=== PATIENT | male | born 1985 | race Caucasian/White ===

== ENCOUNTER 2016-10-18 16:20 | Emergency (ER) | payer OTHER ==
[~2016-10-18] VITALS: Ht 182.9 cm; Wt 125.0 kg
[2016-10-18 16:29] VITALS: BP 157/105; PULSE 124; TEMP 36.7; O2SAT 99; Ht 182.9 cm; Wt 125.0 kg
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
[2017-03-30] MEDS ORDERED: MIRT15TA3 PO (15:05)
[2017-03-30] MEDS ORDERED: QUET1TAB10 PO (15:05)
== END 2016-10-18 16:55 | disposition home or self-care (01) ==
LOC: C.EDB 16:21 → C.EDA 16:55
DX: T21.21XA Burn of second degree of chest wall, initial encounter (principal); T22.00XA Burn of unspecified degree of shoulder and upper limb, except wrist and hand, unspecified site, initial encounter; T31.10 Burns involving 10-19% of body surface with 0% to 9% third degree burns; X18.XXXA Contact with other hot metals, initial encounter; F10.10 Alcohol abuse, uncomplicated; F41.9 Anxiety disorder, unspecified; F32.9 Major depressive disorder, single episode, unspecified; Z72.820 Sleep deprivation; F17.210 Nicotine dependence, cigarettes, uncomplicated

== ENCOUNTER 2017-01-24 13:03 | Emergency (ER) | payer OTHER ==
[~2017-01-24] VITALS: Ht 182.9 cm; Wt 121.4 kg
[2017-01-24 13:17] VITALS: TEMP 36.8; Ht 182.9 cm; Wt 121.4 kg
--- NOTE | 2017-01-24 13:51 | DIAGNOSTIC IMAGING REPORT ---
LEFT ANKLE 3 VIEWS CLINICAL HISTORY: Left ankle pain. FINDINGS: 3 views of the left ankle are compared to study dated 09/28/2009. The skeletal structures are well mineralized. No fracture is seen. The ankle mortise is intact. Degenerative spurring is seen from the anterior tibial plafond. There is a joint effusion, and soft tissue swelling is present around the ankle. IMPRESSION: Soft tissue swelling and joint effusion with no radiographic evidence of left ankle fracture. Electronically signed by: Brenton Polk M.D. 01/24/2017 1:50 PM Dictated Date/Time: 01/24/2017 1:43 PM
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
[2017-01-24] MEDS ORDERED: ZLF/50 PO (15:05)
[2017-01-24] MEDS ORDERED: QUET1TAB10 PO (15:05)
[2017-01-24] MEDS ORDERED: MIRT15TA3 PO (15:05)
[2017-01-24 15:07] VITALS: BP 141/99; PULSE 84; O2SAT 96
== END 2017-01-24 15:08 | disposition home or self-care (01) ==
LOC: C.EDB 13:04 → C.EDD 15:08
DX: S93.402A Sprain of unspecified ligament of left ankle, initial encounter (principal); X58.XXXA Exposure to other specified factors, initial encounter; F32.9 Major depressive disorder, single episode, unspecified; F41.9 Anxiety disorder, unspecified; Z79.899 Other long term (current) drug therapy

== ENCOUNTER 2017-03-30 21:29 | Emergency (ER) | payer OTHER ==
[~2017-03-30] VITALS: Ht 182.9 cm; Wt 122.4 kg
[~2017-03-30 21:29] MED LIST: MIRT15TA3 PO; QUET1TAB10 PO; ZLF/50 PO
[2017-03-30 21:32] VITALS: BP 152/105; PULSE 94; TEMP 36.8; O2SAT 97; Ht 182.9 cm; Wt 122.4 kg
--- NOTE | 2017-03-30 22:14 | DIAGNOSTIC IMAGING REPORT ---
L ANKLE MIN 3 VIEWS ROUTINE HISTORY: 31 years-old Male L ankle pain acute left ankle pain status post trauma COMPARISON: Left ankle radiographs 01/24/2017 TECHNIQUE: 3 views of the left ankle FINDINGS: Moderate soft tissue swelling about the ankle is seen circumferentially. There is a new 4 mm linear bone fragment adjacent to the medial malleolus. No osteochondral defect. Distal tibia and fibula otherwise appear intact. Minimal anterior spurring of the tibial plafond. There is minimal spurring of the plantar calcaneus. Small joint effusion. Negative for opaque foreign body. Stranding is seen within the Kagers fat-pad. IMPRESSION: 4 mm linear bone fragment adjacent to the medial malleolus suggest acute avulsion fracture with moderate soft tissue swelling and small joint effusion. The above report was generated using voice recognition software. It may contain grammatical, syntax or spelling errors. Electronically signed by: Ramon Patton M.D. 03/30/2017 10:13 PM Dictated Date/Time: 03/30/2017 10:10 PM
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
[2017-03-30] MEDS ORDERED: NAPR1TAB9 PO (22:29)
[2017-03-30] MEDS ORDERED: SERT25TA PO (22:29)
== END 2017-03-30 23:03 | disposition home or self-care (01) ==
LOC: C.EDB 21:30 → C.EDD 23:03
DX: S82.892A Other fracture of left lower leg, initial encounter for closed fracture (principal); X50.9XXA Other and unspecified overexertion or strenuous movements or postures, initial encounter

== ENCOUNTER 2017-07-04 16:17 | Emergency (ER) | payer OTHER ==
[~2017-07-04] VITALS: Ht 182.9 cm; Wt 106.3 kg
[~2017-07-04 16:17] MED LIST changes: +NAPR1TAB9 PO; +SERT25TA PO; -ZLF/50 PO
[2017-07-04 16:57] VITALS: TEMP 37; Ht 182.9 cm; Wt 106.3 kg
--- NOTE | 2017-07-04 17:33 | DIAGNOSTIC IMAGING REPORT ---
SOFT TISSUE NECK CLINICAL HISTORY: throat pain; feels like my voice box is moving COMPARISON STUDY: No previous studies for comparison. FINDINGS: The retropharyngeal soft tissues appear normal. No colonic abnormalities are visualized on conventional radiographic imaging. IMPRESSION: Unremarkable conventional radiographic evaluation of the soft tissue neck. Electronically signed by: Olvin Sheikh M.D. 07/04/2017 5:32 PM Dictated Date/Time: 07/04/2017 5:31 PM
[2017-07-04 18:10] VITALS: BP 138/89; PULSE 91; O2SAT 99
--- NOTE | 2017-07-05 23:19 | EMERGENCY ROOM VISIT NOTE ---
ED Visit Note First contact with patient: 17:05 Chief Complaint: Throat pain. History of Present Illness: is a 32-year-old white male who ambulates into the ED accompanied by female friend complaining of anterior throat pain. Patient reports last evening he was eating pizza. He reports wall eating he felt like his larynx acutely shifted to the right. He then continued to eat and the larynx shifted back into its normal place. He denies during these events any episodes of choking or inability to swallow the food or his secretions. He reports when he awoke this morning he noticed a sore sensation over the anterior throat. This pain is located in the anterior groove between the sternocleidomastoid muscle and the larynx. He describes this discomfort as a soreness sensation. He rates his discomfort 7/10. His pain is slightly worse with swallowing. He has not identified any alleviating factors related to the pain. He has not taken any medications for pain prior to arrival at the hospital. He denies fevers, chills, sweats, skin eruptions, skin color changes, difficulty swallowing, voice changes, drooling, painful talking, upper respiratory tract symptoms, coughing, shortness of breath, nausea/vomiting. Review of Systems: As noted above in history of present illness. 8 body systems were reviewed and found to be negative as noted above. Past Medical History: Unspecified knee surgery.. Current Medications: Aleve, Zoloft, Seroquel, Remeron. Allergies to Medications: A shunt denies. Social History: Patient is employed; he feels safe in his home environment; he admits to tobacco and alcohol use. Physical Examination: Vital Signs: Date Time Temp Pulse Resp B/P (MAP) Pulse Ox O2 Delivery O2 Flow Rate FiO2 07/04/17 18:10 91 18 138/89 99 07/04/17 17:02 98 Room Air 07/04/17 16:57 37.0 103 18 147/92 98 Room Air GENERAL: 32-year-old female in mild distress due to pain, nontoxic-appearing, afebrile and hemodynamically stable. NEUROLOGICAL: Awake, alert and oriented to person, place and time. Answering questions appropriately and following commands. Normal gait. Good hand eye coordination. SKIN: Warm, dry and pink. No soft tissue eruptions or trauma noted. HEENT: Atraumatic and normocephalic. No malocclusion. No intraoral trauma. Uvula is midline and no abscesses are seen. No tonsillar hypertrophy or exudates. Speech is normal and clear. Mild anterior tenderness over the larynx without swelling or erythema. No auditory or auscultatory stridor. No local lymphadenopathy. Trachea is midline. No jugular venous distention. THORAX: Lungs sounds are clear to auscultation and equal bilaterally with symmetrical chest wall. No wheezing, rales or rhonchi. ED Course: Patient is assessed as noted above. Patient's medication list was reviewed. Soft Tissue Neck X-Rays: Were reviewed by myself and read by the radiologist and shows unremarkable anginal evaluation of the soft tissue neck. Patient was offered pain medication and refused. Patient's case was reviewed with Dr. Patel; we agreed on diagnostic approach, treatment, disposition and plan. Patient was educated about today's findings and instructed on his treatment plan ; he verbalized understanding and agreement with this plan. Clinical Impression: Anterior throat pain. Decision-Making: Initially my differential diagnosis I considered pharyngitis from multiple causes, laryngitis, epiglottitis, soft tissue mass, throat abscess and other causes. Disposition: Patient discharged home in stable condition accompanied by his girlfriend; prior to departure he was reassessed and subjectively reported he was feeling better and rated his discomfort 4/10. Plan: Patient was encouraged to alternate ibuprofen and acetaminophen every 6 hours as needed for persistent pain. Patient is encouraged to use a liquid or mechanical soft eye until resolution of throat discomfort. Patient was encouraged to avoid alcohol and tobacco use. Patient is encouraged to follow-up with Dr. Canelo Benton ENT specialist for persistent pain. Patient was encouraged return ED for worsening pain, fevers, inability to swallow, painful talking, drooling, difficulty breathing or any new/concerning symptoms.
== END 2017-07-04 18:05 | disposition home or self-care (01) ==
LOC: C.EDB 16:20 → C.EDD 18:05
DX: R07.0 Pain in throat (principal); Z79.899 Other long term (current) drug therapy; Z72.0 Tobacco use

== ENCOUNTER 2017-07-26 10:02 | Emergency (ER) | payer OTHER ==
[~2017-07-26] VITALS: Ht 182.9 cm; Wt 119.0 kg
[2017-07-26 10:10] VITALS: TEMP 36.7; Ht 182.9 cm; Wt 119.0 kg
[2017-07-26 11:04] LABS: BASO % 0.4 %; BASO ABS # 0.03 K/uL (0-0.2); EOS % 2.4 %; EOS ABS # 0.19 K/uL (0-0.5); HEMATOCRIT 46.2 % (42-52); HEMOGLOBIN 16.7 g/dL (14.0-18.0); IG# 0.04 K/uL (0.00-0.02); LYMPH % 28.3 %; LYMPH ABS # 2.24 K/uL (1.2-3.4); MEAN CORPUSCULAR HEMOGLOBIN 32.2 pg (25-34); MEAN CORPUSCULAR HGB CONC 36.1 g/dl (32-36); MEAN PLATELET VOLUME 9.2 fL (7.4-10.4); MONO % 6.4 %; MONO ABS # 0.51 K/uL (0.11-0.59); PLATELET COUNT 168 K/uL (130-400); RED CELL DISTRIBUTION WIDTH CV 12.6 % (11.5-14.5); RED CELL DISTRIBUTION WIDTH SD 40.9 fL (36.4-46.3); WHITE BLOOD COUNT 7.91 K/uL (4.8-10.8)
[2017-07-26] MEDS ORDERED: ALBUT/IPRATROP 3MG/0.5MG NEB 3 ML VIAL INH STA (11:09)
[2017-07-26 11:15] LABS: PTT PATIENT 29.6 SECONDS (21.0-31.0)
[2017-07-26 11:19] LABS: ALBUMIN 3.6 gm/dl (3.4-5.0); CALCIUM 8.6 mg/dl (8.5-10.1); CREATININE 0.71 mg/dl (0.60-1.40); POTASSIUM 4.2 mmol/L (3.5-5.1)
[2017-07-26 11:22] LABS: TOTAL PROTEIN 7.1 gm/dl (6.4-8.2)
--- NOTE | 2017-07-26 11:35 | DIAGNOSTIC IMAGING REPORT ---
CHEST 2 VIEWS ROUTINE HISTORY: EVALUATE RESPIRATORY DISTRESS.DYSPNEA COMPARISON: None. FINDINGS: The lungs are clear. Cardiac silhouette is normal in size. No pleural effusions. No pneumothorax. IMPRESSION: No acute process. Electronically signed by: Khris Davenport M.D. 07/26/2017 11:34 AM Dictated Date/Time: 07/26/2017 11:32 AM
[2017-07-26] MEDS ORDERED: QUET1TAB32 PO (11:47)
[2017-07-26] MEDS ORDERED: PRC4 PO (11:47)
[2017-07-26 12:13] LABS: INFLUENZA B ANTIGEN Neg for Influ B (NEG)
[2017-07-26] MEDS ORDERED: VNTHFA/IN INH (12:41)
[2017-07-26] MEDS ORDERED: BENZ100C18 PO (12:41)
[2017-07-26] MEDS ORDERED: PRED20TA2 PO (12:41)
[2017-07-26 12:51] VITALS: BP 108/96; PULSE 89; O2SAT 98
--- NOTE | 2017-07-26 17:47 | EMERGENCY ROOM VISIT NOTE ---
ED Visit Note First contact with patient: 10:36 Chief Complaint: Coughing up blood. History of Present Illness: Mr. Briones is a 32-year-old white male who ambulates into the ED complaining of a progressive cough for the last 2 days and hemoptysis this morning. Historically patient reports she has no significant pulmonary disease. He reports that 2 days ago he started developing a nonproductive cough. Initially it was mild and nonproductive but then over the last 24-36 hours it has been productive of a clearish sputum and then over the last 12 hours he reports he has been seeing some bright red blood in his sputum. Associated with the cough he reports he is having a burning discomfort in his chest. He rates his discomfort 8/10. The pain is only with cough and usually resolves within 5 minutes of the coughing stopping. He has been using DayQuil and NyQuil for his cough without relief of it. He does report the cough worsens when he is lying flat. He has not noted any alleviating factors related to his discomfort. Associated with symptoms he reports yesterday he had a temperature of 102F. Additionally he reports he has noted some intermittent body aches and reports she has been having multiple exposure to friends and coworkers with history of influenza. He denies skin eruptions, skin color changes, headache, dizziness, lightheadedness, sore throat, neck pain/stiffness, palpitations, claudication, cramping, previous clots, recent surgery/inactivity/extended travel, abdominal pain, nausea, vomiting, back/flank pain. Review of Systems: As noted above in history of present illness. All body systems were reviewed and found to be negative as noted above. Past Medical History: Unspecified knee surgery 2011. Current Medications: Medications Dose Route/Sig Max Daily Dose Days Date Category Dose Instructions Cyproheptadine HCl 4 Mg Tab 2 Mg PO HS 07/26/17 Reported Seroquel (Quetiapine Fumarate) 50 Mg Tab 50 Mg PO BID 07/26/17 Reported Zoloft (Sertraline HCl) 25 Mg Tab 50 Mg PO DAILY 03/30/17 Reported Aleve (Naproxen) 220 Mg Tab 660 Mg PO PRN 03/30/17 Reported Seroquel (Quetiapine Fumarate) 200 Mg Tab 200 Mg PO HS 01/24/17 Reported Remeron (Mirtazapine) 15 Mg Tab 15 Mg PO HS 01/24/17 Reported Allergies to Medications: Patient denies. Social History: Patient is currently employed; he feels safe in his home environment; he admits smoking 2 packs of cigarettes per day and denies alcohol use. Physical Examination: Vital Signs: Date Time Temp Pulse Resp B/P (MAP) Pulse Ox O2 Delivery O2 Flow Rate FiO2 07/26/17 12:51 89 22 108/96 98 07/26/17 12:10 90 18 144/105 94 Room Air 07/26/17 10:53 89 07/26/17 10:45 Room Air 07/26/17 10:44 83 16 153/101 97 Room Air 07/26/17 10:10 36.7 92 18 148/104 98 Room Air GENERAL: 32-year-old male in mild distress due to symptoms, nontoxic-appearing, afebrile and hemodynamically stable. NEUROLOGICAL: Awake, alert and oriented to person, place and time. Answering questions appropriately and following commands. Normal gait. Good hand eye coordination. No focal motor sensory deficits. SKIN: Warm, dry and pink. No soft tissue eruptions or trauma noted. HEENT: Atraumatic and normocephalic. PERRLA. Sclera white and conjunctiva pink. No drainage from naris. Oral cavity moist and pink. Pharynx is nonerythematous or edematous. Speech normal. No lymphadenopathy. Trachea midline. No jugular venous distention. No carotid bruits. BACK: No tenderness over the bony spine. No CVA tenderness. THORAX: Lungs sounds show some fine rales bibasilarly and diffuse wheezing with decreased air movement bilaterally. Equal bilaterally with symmetrical chest wall. No crepitus, tenderness, subcutaneous air or deformities noted. HEART: Regular rate and rhythm. No gallops, rubs or murmurs are appreciated. PMI is not displaced. No lifts, heaves or thrills. ABDOMEN: Flat, soft and nontender. Positive bowel sounds in all quadrants. No guarding, rigidity or organomegaly. EXTREMITIES: Moves all extremities well on command and with purpose. All distal neurovascular statuses are intact and equal bilaterally. No calf tenderness or cords. ED Course: Patient is assessed as noted above. Laboratory Testing: Test 07/26/17 10:35 07/26/17 10:40 07/26/17 11:15 Range/Units Influenza Type A Antigen Neg for Influ A NEG Influenza Type B Antigen Neg for Influ B NEG White Blood Count 7.91 4.8-10.8 K/uL Red Blood Count 5.19 4.7-6.1 M/uL Hemoglobin 16.7 14.0-18.0 g/dL Hematocrit 46.2 42-52 % Mean Corpuscular Volume 89.0 80-100 fL Mean Corpuscular Hemoglobin 32.2 25-34 pg Mean Corpuscular Hemoglobin Concent 36.1 32-36 g/dl Platelet Count 168 130-400 K/uL Mean Platelet Volume 9.2 7.4-10.4 fL Neutrophils (%) (Auto) 62.0 % Lymphocytes (%) (Auto) 28.3 % Monocytes (%) (Auto) 6.4 % Eosinophils (%) (Auto) 2.4 % Basophils (%) (Auto) 0.4 % Neutrophils # (Auto) 4.90 1.4-6.5 K/uL Lymphocytes # (Auto) 2.24 1.2-3.4 K/uL Monocytes # (Auto) 0.51 0.11-0.59 K/uL Eosinophils # (Auto) 0.19 0-0.5 K/uL Basophils # (Auto) 0.03 0-0.2 K/uL RDW Standard Deviation 40.9 36.4-46.3 fL RDW Coefficient of Variation 12.6 11.5-14.5 % Immature Granulocyte % (Auto) 0.5 % Immature Granulocyte # (Auto) 0.04 0.00-0.02 K/uL Prothrombin Time 10.3 9.0-12.0 SECONDS Prothromb Time International Ratio 1.0 0.9-1.1 Activated Partial Thromboplast Time 29.6 21.0-31.0 SECONDS Partial Thromboplastin Ratio 1.1 Sodium Level 140 136-145 mmol/L Potassium Level 4.2 3.5-5.1 mmol/L Chloride Level 108 98-107 mmol/L Carbon Dioxide Level 27 21-32 mmol/L Anion Gap 5.0 3-11 mmol/L Blood Urea Nitrogen 11 7-18 mg/dl Creatinine 0.71 0.60-1.40 mg/dl Est Creatinine Clear Calc Drug Dose 198.9 ml/min Estimated GFR () 143.9 Estimated GFR (Non- 124.1 BUN/Creatinine Ratio 15.9 10-20 Random Glucose 104 70-99 mg/dl Calcium Level 8.6 8.5-10.1 mg/dl Total Bilirubin 0.5 0.2-1 mg/dl Aspartate Amino Transf (AST/SGOT) 29 15-37 U/L Alanine Aminotransferase (ALT/SGPT) 37 12-78 U/L Alkaline Phosphatase 104 45-117 U/L Troponin I < 0.015 0-0.045 ng/ml Total Protein 7.1 6.4-8.2 gm/dl Albumin 3.6 3.4-5.0 gm/dl Globulin 3.5 2.5-4.0 gm/dl Albumin/Globulin Ratio 1.0 0.9-2 Urine Color YELLOW Urine Appearance CLEAR CLEAR Urine pH 5.5 4.5-7.5 Urine Specific [place] 1.021 1.000-1.030 Urine Protein NEG NEG Urine Glucose (UA) NEG NEG Urine Ketones NEG NEG Urine Occult Blood NEG NEG Urine Nitrite NEG NEG Urine Bilirubin NEG NEG Urine Urobilinogen NEG NEG Urine Leukocyte Esterase NEG NEG EKG: Was read by myself and reviewed with Dr. Underwood; shows normal sinus rhythm with a ventricular rate of 93 bpm. Normal axis, intervals and complexes. No acute ST changes indicating ischemia, injury or infarction. Medical records were reviewed and no EKGs were found for comparison. Chest X-Rays: Read by myself and the radiologist and showing no acute infiltrates, effusions or pneumothorax. Normal heart silhouette and bony anatomy. Medical records were reviewed and no films were found for comparison. An IV lock was initiated. Patient received an albuterol/Atrovent nebulizer breathing treatment. On reevaluation of his lungs after his breathing treatment he has resolution of wheezing and fine rales and has improved air movement in all thompson. Patient was reassessed multiple times during her stay in the emergency department. Patient's case was reviewed with Dr. Underwood; we agreed on diagnostic approach, treatment, disposition and plan. Patient was educated about today's findings and instructed on his treatment plan ; he verbalized understanding and agreement with this plan. Clinical Impression: Acute bronchitis. Hemoptysis. Decision-Making: Initially my differential diagnosis I considered pneumonia, bronchitis, pulmonary edema, pulmonary embolism, acute coronary syndrome and other causes. Disposition: Patient discharged home in stable condition; prior to departure he was reassessed and subjectively reported he was pain and symptom-free. Plan: Patient was encouraged alternate ibuprofen or acetaminophen every 3 hours as needed for pain and/or fevers. Patient was prescribed Tessalon Perles 100 mg every 8 hours as needed for cough. Patient was prescribed 60 mg of prednisone once a day for the next 5 days. Patient was prescribed an albuterol inhaler with a spacer and instructed to use 2 puffs every 6 hours for 5 days or as needed for severe coughing episodes, wheezing or shortness of breath. Patient was encouraged to stop smoking. Patient is encouraged to follow-up with his PCP for recheck in 2-3 days if no better. Patient is encouraged to return to the ED for worsening/uncontrolled pain, uncontrolled fevers, coughing up worsening blood, uncontrolled shortness of breath or any new/concerning symptoms.
== END 2017-07-26 12:53 | disposition home or self-care (01) ==
LOC: C.EDB 10:03 → C.EDC 12:53
DX: J20.9 Acute bronchitis, unspecified (principal); R04.2 Hemoptysis

== ENCOUNTER 2017-09-15 20:16 | Emergency (ER) | payer OTHER ==
[~2017-09-15] VITALS: Ht 182.9 cm; Wt 119.5 kg
[~2017-09-15 20:16] MED LIST changes: +PRC4 PO; +QUET1TAB32 PO
[2017-09-15 20:20] VITALS: TEMP 36.6; Ht 182.9 cm; Wt 119.5 kg
[2017-09-15] MEDS ORDERED: SODIUM CHLORIDE 0.9% 1000ML 2,000 ML IV STA (20:48)
[2017-09-15] MEDS ORDERED: GI COCKTAIL PO STA (20:48)
[2017-09-15 20:50] VITALS: O2SAT 95
--- NOTE | 2017-09-15 20:50 | EMERGENCY ROOM VISIT NOTE ---
History Report prepared by Vernon: Adán Ortiz Under the Supervision of: Dr. Juan Carlos Rodriguez M.D. First contact with patient: 20:34 Chief Complaint: CHEST PAIN Stated Complaint: CHEST PAIN, SOB, ELEVATED BP History of Present Illness The patient is a 32 year old male who presents to the Emergency Room with complaints of constant chest tightness and pressure beginning this morning. He notes he woke up this morning and noted his discomfort. The patient states he has a history of this before, but it has never been this severe. He reports he is also experiencing shortness of breath. The patient notes it felt as if he was having a panic attack. He states he was measuring his pulse and found it was around 115 bpm. The patient reports he has not had an elevated pulse with it before. He notes he ate a cheesesteak a few hours before sleeping. The patient states he typically drinks 10 alcohol drinks a day, and he does not know if withdrawal is contributing to it. He reports the last time he went a few days without drinking, he experienced irritability, but no physical symptoms. The patient notes he has a history of PTSD, GERD, and anxiety. The patient states he has a history of smoking a pack or more a day. He denies cough , congestion, fevers, nausea, vomiting, diarrhea, recent travel, and long trips. The patient notes he is adopted and does not know his biological family history. Source of History: patient Onset: this morning Position: chest Quality: pressure, other (tightness) Timing: constant Associated Symptoms: + SOB, No fevers, No cough, No nausea, No vomiting, No diarrhea Note: Associated symptoms: increased pulse Denies: recent travel and long trips, congestion Review of Systems See HPI for pertinent positives and negatives. A total of ten systems were reviewed and were otherwise negative. Past Medical & Surgical Medical Problems: (1) Alcohol abuse (2) Anxiety (3) Depression (4) Sleep deprivation Family History Unobtainable family history due to adoption Social History Smoking Status: Current Every Day Smoker Alcohol Use: heavy Drug Use: marijuana Marital Status: single Housing Status: lives with family Occupation Status: employed Current/Historical Medications Scheduled Cyproheptadine HCl (Cyproheptadine HCl), 4 MG PO HS Famotidine (Pepcid), 20 MG PO BID Mirtazapine (Remeron), 15 MG PO HS Quetiapine Fumarate (Seroquel), 50 MG PO AMHS Sertraline (Zoloft), 50 MG PO DAILY Allergies Coded Allergies: No Known Allergies (Unverified , 07/26/17) Physical Exam Vital Signs Date Time Temp Pulse Resp B/P (MAP) Pulse Ox O2 Delivery O2 Flow Rate FiO2 09/15/17 23:12 71 18 122/91 97 09/15/17 22:08 72 18 136/91 98 Room Air 09/15/17 20:50 95 Room Air 09/15/17 20:50 95 Room Air 09/15/17 20:47 92 09/15/17 20:20 36.6 94 20 164/117 97 Room Air Physical Exam GENERAL: Awake, alert, anxious-appearing, in no distress HENT: Normocephalic, atraumatic. Oropharynx has dry mucous membranes, otherwise unremarkable. EYES: Normal conjunctiva. Sclera non-icteric. NECK: Supple. No nuchal rigidity. FROM. No JVD. RESPIRATORY: Clear to auscultation. CARDIAC: Regular rate, normal rhythm. Extremities warm and well perfused. Pulses equal. ABDOMEN: Soft, non-distended. Mild epigastric discomfort with no discrete tenderness to palpation. No rebound or guarding. No masses. RECTAL: Deferred. MUSCULOSKELETAL: Chest examination reveals no tenderness. The back is symmetrical on inspection without obvious abnormality. There is no CVA tenderness to palpation. No joint edema. LOWER EXTREMITIES: Calves are equal size bilaterally and non-tender. No edema. No discoloration. NEURO: Normal sensorium. No sensory or motor deficits noted. SKIN: No rash or jaundice noted. Medical Decision & Procedures ER Provider Diagnostic Interpretation: X-ray: Per my interpretation, radiologist review. CHEST ONE VIEW PORTABLE HISTORY: Atypical CHEST PAIN COMPARISON: Chest 07/26/2017. FINDINGS: The lungs are clear. Cardiac silhouette is normal in size. No pleural effusions. No pneumothorax. Mild elevation the right hemidiaphragm, unchanged. IMPRESSION: Stable mild elevation of the right hemidiaphragm. Otherwise, no acute process within the chest. Electronically signed by: Khris Davenport M.D. 09/15/2017 9:14 PM Dictated Date/Time: 09/15/2017 9:12 PM Laboratory Results 09/15/17 20:50 Red Blood Count 5.19, Mean Corpuscular Volume 89.6, Mean Corpuscular Hemoglobin 32.6, Mean Corpuscular Hemoglobin Concent 36.3, Mean Platelet Volume 8.9, Neutrophils (%) (Auto) 66.1, Lymphocytes (%) (Auto) 22.7, Monocytes (%) (Auto) 8.7, Eosinophils (%) (Auto) 1.6, Basophils (%) (Auto) 0.2, Neutrophils # (Auto) 8.70, Lymphocytes # (Auto) 2.99, Monocytes # (Auto) 1.14, Eosinophils # (Auto) 0.21, Basophils # (Auto) 0.03 09/15/17 20:50 Test 09/15/17 20:50 White Blood Count 13.16 K/uL (4.8-10.8) Red Blood Count 5.19 M/uL (4.7-6.1) Hemoglobin 16.9 g/dL (14.0-18.0) Hematocrit 46.5 % (42-52) Mean Corpuscular Volume 89.6 fL (80-100) Mean Corpuscular Hemoglobin 32.6 pg (25-34) Mean Corpuscular Hemoglobin Concent 36.3 g/dl (32-36) Platelet Count 219 K/uL (130-400) Mean Platelet Volume 8.9 fL (7.4-10.4) Neutrophils (%) (Auto) 66.1 % Lymphocytes (%) (Auto) 22.7 % Monocytes (%) (Auto) 8.7 % Eosinophils (%) (Auto) 1.6 % Basophils (%) (Auto) 0.2 % Neutrophils # (Auto) 8.70 K/uL (1.4-6.5) Lymphocytes # (Auto) 2.99 K/uL (1.2-3.4) Monocytes # (Auto) 1.14 K/uL (0.11-0.59) Eosinophils # (Auto) 0.21 K/uL (0-0.5) Basophils # (Auto) 0.03 K/uL (0-0.2) RDW Standard Deviation 44.8 fL (36.4-46.3) RDW Coefficient of Variation 13.7 % (11.5-14.5) Immature Granulocyte % (Auto) 0.7 % Immature Granulocyte # (Auto) 0.09 K/uL (0.00-0.02) Anion Gap 8.0 mmol/L (3-11) Est Creatinine Clear Calc Drug Dose 168.5 ml/min Estimated GFR () 134.3 Estimated GFR (Non- 115.9 BUN/Creatinine Ratio 11.4 (10-20) Calcium Level 8.9 mg/dl (8.5-10.1) Magnesium Level 1.8 mg/dl (1.8-2.4) Total Bilirubin 1.0 mg/dl (0.2-1) Direct Bilirubin 0.2 mg/dl (0-0.2) Aspartate Amino Transf (AST/SGOT) 47 U/L (15-37) Alanine Aminotransferase (ALT/SGPT) 53 U/L (12-78) Alkaline Phosphatase 101 U/L (45-117) Troponin I < 0.015 ng/ml (0-0.045) Total Protein 7.4 gm/dl (6.4-8.2) Albumin 4.0 gm/dl (3.4-5.0) Lipase 141 U/L (73-393) Thyroid Stimulating Hormone (TSH) 2.300 uIu/ml (0.300-4.500) Laboratory results reviewed by me Medications Administered Medications (Trade) Dose Ordered Sig/Lizbet Route Start Time Stop Time Status Last Admin Dose Admin Sodium Chloride 2,000 ml @ 999 mls/hr Q2H1M STAT IV 09/15/17 20:48 09/15/17 22:48 DC 09/15/17 21:03 999 MLS/HR Famotidine (Pepcid Tab) 20 mg NOW ONCE PO 09/15/17 21:00 09/15/17 21:01 DC 09/15/17 21:03 20 MG Al Hydroxide/Mg Hydroxide (Maalox Susp) 30 ml STK-MED ONCE .ROUTE 09/15/17 20:58 09/15/17 20:59 DC 09/15/17 21:04 30 ML Lidocaine HCl (Viscous Lidocaine 2% Soln) 20 ml STK-MED ONCE .ROUTE 09/15/17 20:58 09/15/17 20:59 DC 09/15/17 21:04 20 ML ECG Per My Interpretation Indication: chest pain Rate (beats per minute): 99 Rhythm: normal sinus Findings: no acute ischemic change, other (Normal axis) ED Course 2039: The patient was evaluated in room B12B. A complete history and physical exam was performed. 2312: I reevaluated the patient. Discussed results and discharge instructions: he verbalized understanding and agreement. The patient is ready for discharge. Medical Decision I reviewed the patient's past medical history, medications, and the nursing notes as described above. Differential diagnosis: Etiologies such as cardiac ischemia, aortic dissection, pulmonary embolism, pneumonia, pneumothorax, musculoskeletal, infections, pericarditis, myocarditis , esophageal rupture, gastrointestinal, as well as others were entertained. The patient is a 32 y/o gentleman who presents to the emergency department with constant CP since this morning in the setting of weeks of similar symptoms per HPI. On arrival, the patient is anxious appearing but in NAD, AFVSS. EKG unremarkable, CXR negative. Trop negative in the setting of greater than 6 hours of symptoms. WBC 13 nonspecific, labs otherwise unremarkable. Heart score 1, low risk, acs unlikely. PERC negative PE not likely. Not positional, pericarditis not likely. No tearing pain and equal pulses, dissection not likely. Patient given GI cocktail and pepcid with improvement in his sx suggesting likely reflux/gastritis component in the setting of his heavy alcohol use. Also, likely has underlying anxiety component. Patient reporting some residual tightness, which is likely related to his smoking and so given MDI. Patient counseled on the importance of smoking cessation and refraining from heavy alcohol use , which will improve current symptoms and help reduce his risk for future medical problems. Findings and plan for follow-up reviewed with patient. Patient agreeable and d/c'd per discharge instructions. Medication Reconcilliation Current Medication List: was personally reviewed by me Blood Pressure Screening Patient's blood pressure: Normal blood pressure Blood pressure disposition: Did not require urgent referral Impression Primary Impression: Substernal precordial chest pain Additional Impression: Anxiety Scribe Attestation The scribe's documentation has been prepared under my direction and personally reviewed by me in its entirety. I confirm that the note above accurately reflects all work, treatment, procedures, and medical decision making performed by me. Departure Information Dispostion Home / Self-Care Prescriptions Famotidine (PEPCID) 20 Mg Tab 20 MG PO BID for 10 Days, #20 TAB Prov: Juan Carlos Rodriguez M.D. 09/15/17 Referrals No Doctor, Assigned (PCP) Forms Call Back Authorization, HOME CARE DOCUMENTATION FORM, IMPORTANT VISIT INFORMATION Patient Instructions Anxiety Body Response, ED Alcohol Abuse, ED Chest Pain Atypical Unkn Cause, ED Gastritis, ED Smoking Cessation, [facility] Additional Instructions Please follow up with your primary care physician in the next 1-3 days for re- evaluation. The cause of your symptoms is unclear at this time however may be a combination of reflux/gastritis setting of your underlying anxiety. Otherwise, your exam, EKG, chest xray, and lab results did not show signs of an emergent condition at this time. Albuterol 2 puffs every 4 hours for cough and congestion as needed. Pepcid for acid reduction. You should consider stopping smoking as well as her heavy alcohol use as this will help your current symptoms and help prevent medical problems in the future. Drink plenty of fluids to ensure hydration. Return to the emergency department for worsening symptoms as described in the accompanying instructions. Problem Qualifiers
[2017-09-15] MEDS ORDERED: ALUMINUM/MAGNESIUM SUSP 30 ML UDC ONE (20:58)
[2017-09-15] MEDS ORDERED: LIDOCAINE HCL 2% VISC SOLN 20 ML UDC ONE (20:58)
[2017-09-15] MEDS ORDERED: FAMOTIDINE 20 MG TAB PO ONE (21:00)
[2017-09-15 21:02] LABS: BASO % 0.2 %; BASO ABS # 0.03 K/uL (0-0.2); EOS % 1.6 %; EOS ABS # 0.21 K/uL (0-0.5); HEMATOCRIT 46.5 % (42-52); HEMOGLOBIN 16.9 g/dL (14.0-18.0); IG# 0.09 K/uL (0.00-0.02); LYMPH % 22.7 %; LYMPH ABS # 2.99 K/uL (1.2-3.4); MEAN CELL VOLUME 89.6 fL (80-100); MEAN CORPUSCULAR HEMOGLOBIN 32.6 pg (25-34); MEAN CORPUSCULAR HGB CONC 36.3 g/dl (32-36); MEAN PLATELET VOLUME 8.9 fL (7.4-10.4); MONO % 8.7 %; MONO ABS # 1.14 K/uL (0.11-0.59); NEUT % 66.1 %; PLATELET COUNT 219 K/uL (130-400); RED CELL DISTRIBUTION WIDTH CV 13.7 % (11.5-14.5); RED CELL DISTRIBUTION WIDTH SD 44.8 fL (36.4-46.3); WHITE BLOOD COUNT 13.16 K/uL (4.8-10.8)
[2017-09-15] MEDS ORDERED: SERT50TA PO (21:13)
--- NOTE | 2017-09-15 21:15 | DIAGNOSTIC IMAGING REPORT ---
CHEST ONE VIEW PORTABLE HISTORY: Atypical CHEST PAIN COMPARISON: Chest 07/26/2017. FINDINGS: The lungs are clear. Cardiac silhouette is normal in size. No pleural effusions. No pneumothorax. Mild elevation the right hemidiaphragm, unchanged. IMPRESSION: Stable mild elevation of the right hemidiaphragm. Otherwise, no acute process within the chest. Electronically signed by: Khris Davenport M.D. 09/15/2017 9:14 PM Dictated Date/Time: 09/15/2017 9:12 PM
[2017-09-15 21:30] LABS: ALT/SGPT 53 U/L (12-78); BLOOD UREA NITROGEN 10 mg/dl (7-18); CALCIUM 8.9 mg/dl (8.5-10.1); CARBON DIOXIDE 24 mmol/L (21-32); CREATININE 0.84 mg/dl (0.60-1.40); GLUCOSE 92 mg/dl (70-99); LIPASE 141 U/L (73-393); POTASSIUM 3.6 mmol/L (3.5-5.1); SODIUM 138 mmol/L (136-145)
[2017-09-15 21:41] LABS: ALKALINE PHOSPHATASE 101 U/L (45-117); AST/SGOT 47 U/L (15-37); TOTAL PROTEIN 7.4 gm/dl (6.4-8.2)
[2017-09-15] MEDS ORDERED: ALBUTEROL HFA 8 GM INHALER INH STA (22:55)
[2017-09-15] MEDS ORDERED: FAMO20TA9 PO (22:57)
[2017-09-15 23:12] VITALS: BP 122/91; PULSE 71; O2SAT 97
== END 2017-09-15 23:12 | disposition home or self-care (01) ==
LOC: C.EDB 20:18
DX: R07.2 Precordial pain (principal); F41.9 Anxiety disorder, unspecified; R06.02 Shortness of breath; K21.9 Gastro-esophageal reflux disease without esophagitis; F43.10 Post-traumatic stress disorder, unspecified; F17.200 Nicotine dependence, unspecified, uncomplicated; Z79.899 Other long term (current) drug therapy